=== PATIENT | female | born 1980 | race Two or more races ===

== ENCOUNTER 2016-09-17 17:36 | Emergency (ER) | payer MEDICAID ==
[2016-09-17 18:25] LABS: SPECIFIC GRAVITY 1.015 (1.001-1.030); URINE BILIRUBIN NEGATIVE (NEGATIVE); URINE BLOOD NEGATIVE (NEGATIVE); URINE GLUCOSE (UA) NEGATIVE (NEGATIVE); URINE LEUKOCYTE ESTERASE TRACE (NEGATIVE); URINE NITRITE NEGATIVE (NEGATIVE); URINE PROTEIN TRACE (NEGATIVE)
[2016-09-17 18:28] LABS: URINE UROBILINOGEN 4 mg/dL (0-1 mg/dl)
[2016-09-17 18:29] LABS: URINE APPEARANCE CLOUDY; URINE COLOR AMBER
[2016-09-17 18:37] LABS: URINE RBC 0 /hpf; URINE WBC 0-1 /hpf
[2016-09-17 18:38] LABS: URINE BACTERIA 3+
[2016-09-17] MEDS ORDERED: SODIUM CHLORIDE 0.9% 1,000 ML ONE (19:12)
[2016-09-17] MEDS ORDERED: ONDANSETRON 4 MG ODT TAB ONE (19:12)
[2016-09-17] MEDS ORDERED: HYDROCODONE/ACETAMINOPHEN 5/325MG TABLET ONE (19:12)
[2016-09-17 19:23] LABS: ABSOLUTE NEUTROPHIL COUNT 5.7 K/mm3 (1.8-7.7); BASO % 0.4 % (0.2-1.0); EOS # 0.2 (0.0-0.5); EOS % 1.7 % (0.9-2.9); HEMATOCRIT 39.1 % (37.0-47.0); HEMOGLOBIN 13.3 gm/l (12.0-16.0); IMM NEUT% 0.2 % (0-1); LYMPH # 2.8 (1.0-4.8); LYMPH % 30.7 % (15-45); MEAN CELL VOLUME 86.5 fl (81.0-99.0); MEAN CORPUSCULAR HEMOGLOBIN 29.4 pg (27.0-31.0); MEAN PLATELET VOLUME 10.1 fl (7.4-10.4); MONO # 0.5 (0.0-0.8); MONO % 5.2 % (4-12); NEUT % 61.8 % (43-75); PLATELET COUNT 281 K/mm3 (130-400); RED CELL DISTRIBUTION WIDTH 12.8 % (11.5-14.5)
[2016-09-17 19:36] LABS: ALB/GLOB RATIO 1.7 (>1.0); ALBUMIN 4.3 gm/dL (3.5-5.7); CALCIUM 9.3 mg/dL (8.6-10.3)
--- NOTE | 2016-09-17 21:04 | US ---
EXAMINATION: Obstetrical ultrasound less than 14 weeks. CLINICAL INDICATION:Early . Left lower quadrant pain Clinical estimated gestational age: 4 weeks 4 days : 4 , para 2 Technique:Transabdominal and transvaginal sonograms performed. Findings: There is no discernible gestational sac, pole, yolk sac or cardiac activity identified. Small fluid collection is noted within the uterine fundus. It measures 0.65 cm in diameter. It currently does not appear irregular. There is a uterine leiomyoma measuring 2.4 x 2.2 x 2.9 cm. Maternal adnexa: Right ovary 2.7 x 2.0 x 2.2 centimeters. There is a hypoechoic focus measuring 1.5 x 1.3 x 1.3 cm. No complicated adnexal mass is identified. Left ovary: 1.6 x 1.1 x 1.3 centimeters. There is Doppler flow Free fluid:Absent IMPRESSION: Currently no intrauterine gestation is identified. This finding is nonspecific. Early intrauterine gestation, missed , and ectopic cannot be excluded.. There is apparent 1.5 cm right corpus luteum cyst. Continued clinical surveillance, serial serum beta hCGs and followup sonography if indicated should be considered. Findings recommended by stat read radiology to the emergency department 2045 09/17/2016
== END 2016-09-17 22:57 | disposition home or self-care (01) ==
LOC: ED 17:36
DX: O26.891 Other specified pregnancy related conditions, first trimester (principal); R10.2 Pelvic and perineal pain; Z3A.01 Less than 8 weeks gestation of pregnancy
CPT/HCPCS: 83690; 84702; 84703; 85025; 80053; 81001; 76817; 76801; 99284; 36415; 99283; J7030; A9270 ×2